=== PATIENT | female | born 1960 | race Caucasian/White ===

== ENCOUNTER 2018-09-24 16:43 | Emergency (ER) | payer OTHER ==
[2018-09-24 17:26] VITALS: BP 120/73
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
== END 2018-09-24 18:28 | disposition home or self-care (01) ==
LOC: UCCORT 16:43
DX: S60.031A Contusion of right middle finger without damage to nail, initial encounter (principal); S60.041A Contusion of right ring finger without damage to nail, initial encounter; V00.831A Fall from motorized mobility scooter, initial encounter; Y93.9 Activity, unspecified; Y92.9 Unspecified place or not applicable; E07.9 Disorder of thyroid, unspecified
CPT/HCPCS: 99202; G0463